=== PATIENT | female | born 1975 | race Caucasian/White ===

== ENCOUNTER 2021-04-22 08:28 | Emergency (ER) | payer SELFPAY ==
[~2021-04-22] VITALS: Ht 147.3 cm; Wt 56.8 kg
[2021-04-22 08:37] VITALS: Ht 147.3 cm; Wt 56.8 kg
[2021-04-22 09:12] LABS: INFLUENZA TYPE A NEGATIVE (NEGATIVE); INFLUENZA TYPE B NEGATIVE (NEGATIVE)
[2021-04-22] MEDS ORDERED: AMOXICILLIN875 MG PO (10:00)
[2021-04-22 10:33] VITALS: BP 107/72
== END 2021-04-22 10:34 | disposition home or self-care (01) ==
LOC: D.ER 08:28
PROVIDERS: Emergency Medicine
DX: J03.90 Acute tonsillitis, unspecified (principal); Z72.0 Tobacco use